=== PATIENT | female | born 1985 | race Caucasian/White ===

== ENCOUNTER 2016-11-12 14:56 | Emergency (ER) | payer SELFPAY ==
[~2016-11-12] VITALS: Ht 160 cm; Wt 121.6 kg
[2016-11-12] MEDS ORDERED: CELECOXIB 100 MG (CeleBREX) CAP PO STA (15:51)
[2016-11-12 16:06] LABS: BILIRUBIN,URINE NEGATIVE (NEGATIVE); KETONES,URINE NEGATIVE (NEGATIVE); LEUKOCYTE ESTERASE ,URINE 1+ (NEGATIVE); NITRITE,URINE NEGATIVE (NEGATIVE); PH,URINE 7 (5-9); PROTEIN,URINE 1+ (NEGATIVE); UROBILINOGEN,URINE 1 MG/DL (NORMAL)
[2016-11-12 16:14] LABS: WBC,URINE 0-2 /HPF
[2016-11-12 16:24] LABS: BASOPHILS % (AUTO) 0 % (0-10); EOSINOPHILS # (AUTO) 0.3 10^3/uL (0.0-0.3); EOSINOPHILS % (AUTO) 3 % (0-10); LYMPHOCYTES # (AUTO) 2.5 X 10^3 (1.0-4.0); LYMPHOCYTES % (AUTO) 24 % (12-44); MEAN CORPUSCULAR HEMOGLOBIN 30 PG (25-34); MEAN CORPUSCULAR HGB CONC 33 G/DL (32-36); MEAN CORPUSCULAR VOLUME 91 FL (80-99); MEAN PLATELET VOLUME 11.1 FL (7.4-10.4); MONOCYTES % (AUTO) 10 % (0-12); NEUTROPHILS # (AUTO) 6.5 X 10^3 (1.8-7.8); NEUTROPHILS % (AUTO) 63 % (42-75); PLATELET COUNT 246 10^3/uL (130-400); RED BLOOD COUNT 4.63 10^6/uL (4.35-5.85); RED CELL DISTRIBUTION WIDTH 14.7 % (10.0-14.5); WHITE BLOOD COUNT 10.3 10^3/uL (4.3-11.0)
--- NOTE | 2016-11-12 16:56 | ED GU-Female ---
General Chief Complaint: -Female Stated Complaint: VAG BLEEDING Nursing Triage Note: AMBULATED TO ROOM 10 WITH COMPLAINTS OF A HEAVY PERIOD STARTING LAST NIGHT. DENIES PAIN ET STATES PERIOD IS 1 WEEK EARLY. DENIES PREGANCY ET IS HERE WITH HER . Nursing Sepsis Screen: No Definite Risk History of Present Illness Time seen by provider: 15:35 Initial Comments Patient reports increased menstrual flow today. She reports having to change a super absorbency tampon on an hourly basis. She also reports that her cycle is approximately one week early. 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 She had treatment by an [facility] in [place] in [place]. She's had no further follow-up. She did have 2 vaginal deliveries. Patient reports she had one other experience with a heavy menstrual cycle a few years ago and she became very dizzy and short of breath easily. Denies any history of anemia. Timing/Duration: this morning Severity/Quality: moderate Location: suprapubic Radiation: none Activities at Onset: none Prior Genitourinary Problems: none Sexual [place] History: single partner (same sex partner) Associated Symptoms: No fever/chills, No loss of bladder control, No lower back pain, No nausea/vomiting, syncope Allergies and Home Medications Allergies Coded Allergies: amphetamine (Verified Adverse Reaction, Severe, SYNCOPE, 11/12/16) dextroamphetamine (Verified Adverse Reaction, Severe, SYNCOPE, 11/12/16) divalproex sodium (Verified Adverse Reaction, Unknown, DROWSINESS, 11/12/16) ketorolac (Verified Adverse Reaction, Unknown, N/V, 11/12/16) sumatriptan (Verified Adverse Reaction, Unknown, HEADACHE, 11/12/16) tramadol (Verified Adverse Reaction, Unknown, N/V, 11/12/16) Home Medications No Active Prescriptions or Reported Meds Constitutional: no symptoms reported, see HPI EENTM: no symptoms reported, see HPI Respiratory: no symptoms reported, see HPI Cardiovascular: no symptoms reported, see HPI Gastrointestinal: see HPI, abdominal pain (suprapubic) Genitourinary: no symptoms reported, see HPI : No Musculoskeletal: no symptoms reported, see HPI Skin: no symptoms reported, see HPI Psychiatric/Neurological: No Symptoms Reported, See HPI Endocrine: No Symptoms Reported, See HPI Hematologic/Lymphatic: No Symptoms Reported, See HPI All Other Systemes Reviewed Negative Unless Noted: Yes Past Tcvcsns-Hmwgfe-Tjtgey Hx Patient Social History Alcohol Use: Denies Use Recreational Drug Use: Yes Drug of Choice: POT Smoking Status: Current Everyday Smoker Recent Foreign Travel: No Contact w/Someone Who Travel: No Recent Infectious Disease Expo: No Recent Hopitalizations: No Surgeries Surgeries: Orthopedic Reviewed Nursing Assessment Reviewed/Agree w Nursing PMH: Yes Physical Exam Vital Signs Vital Sign - Last 12Hours 11/12/16 15:10 Temp 98.4 Pulse 70 Resp 16 B/P (MAP) 134/95 Pulse Ox 99 Capillary Refill : Less Than 3 Seconds General Appearance: WD/WN, no apparent distress Neck: non-tender, full range of motion, normal inspection Cardiovascular: normal peripheral pulses, regular rate, rhythm, no murmur Respiratory: chest non-tender, lungs clear Gastrointestinal: normal bowel sounds, soft, No distended, No rebound, tenderness (minimal in the suprapubic region), No hepatomegaly Extremities: normal range of motion, non-tender, normal inspection, no pedal edema, no calf tenderness, normal capillary refill Neurologic/Psychiatric: no motor/sensory deficits, alert, normal mood/affect, oriented x 3 Skin: normal color, warm/dry Progress/Results/Core Measures Results/Orders Lab Results Laboratory Tests Test 11/12/16 15:50 11/12/16 16:13 Range/Units Urine Color YELLOW Urine Clarity CLEAR Urine pH 7 5-9 Urine Specific Dawson 1.015 L 1.016-1.022 Urine Protein 1+ H NEGATIVE Urine Glucose (UA) NEGATIVE NEGATIVE Urine Ketones NEGATIVE NEGATIVE Urine Nitrite NEGATIVE NEGATIVE Urine Bilirubin NEGATIVE NEGATIVE Urine Urobilinogen 1 NORMAL MG/DL Urine Leukocyte Esterase 1+ H NEGATIVE Urine RBC (Auto) 5+ H NEGATIVE Urine RBC TNTC H /HPF Urine WBC 0-2 /HPF Urine Squamous Epithelial Cells 2-5 /HPF Urine Crystals NONE /LPF Urine Bacteria FEW H /HPF Urine Casts NONE /LPF Urine Mucus NEGATIVE /LPF Urine Culture Indicated NO White Blood Count 10.3 4.3-11.0 10^3/uL Red Blood Count 4.63 4.35-5.85 10^6/uL Hemoglobin 13.9 11.5-16.0 G/DL Hematocrit 42 35-52 % Mean Corpuscular Volume 91 80-99 FL Mean Corpuscular Hemoglobin 30 25-34 PG Mean Corpuscular Hemoglobin Concent 33 32-36 G/DL Red Cell Distribution Width 14.7 H 10.0-14.5 % Platelet Count 246 130-400 10^3/uL Mean Platelet Volume 11.1 H 7.4-10.4 FL Neutrophils (%) (Auto) 63 42-75 % Lymphocytes (%) (Auto) 24 12-44 % Monocytes (%) (Auto) 10 0-12 % Eosinophils (%) (Auto) 3 0-10 % Basophils (%) (Auto) 0 0-10 % Neutrophils # (Auto) 6.5 1.8-7.8 X 10^3 Lymphocytes # (Auto) 2.5 1.0-4.0 X 10^3 Monocytes # (Auto) 1.0 0.0-1.0 X 10^3 Eosinophils # (Auto) 0.3 0.0-0.3 10^3/uL Basophils # (Auto) 0.0 0.0-0.1 10^3/uL My Orders Orders - CRISTA DRUMMOND Cbc With Automated Diff (11/12/16 15:51) Ua Culture If Indicated (11/12/16 15:51) Celecoxib Capsule (Celebrex Capsule) (11/12/16 15:51) Vital Signs/I&O Vital Sign - Last 12Hours 11/12/16 11/12/16 15:10 17:05 Temp 98.4 Pulse 70 77 Resp 16 16 B/P (MAP) 134/95 Pulse Ox 99 98 Blood Pressure Mean: 108 Progress Note : Time: 15:35 Progress Note Initial evaluation completed, will obtain labs. Patient declined wanting an hCG as she isn't in same-sex relationship. Celebrex 200 mg by mouth for cramps. 1615 WBC 10.3, hemoglobin 13.9, hematocrit 42. UA essentially normal, other than red blood cells, as the patient is on her menstrual cycle. Patient reports her symptoms are improving since taking the Celebrex. Discussed plans for discharge to home she agreed to follow up with [facility] for further evaluation if she continues to have heavy cycles. She also understands the importance of having a follow-up Pap smear and pelvic exam. Departure Impression Impression: Primary Impression: Menstrual cramps Additional Impression: Menorrhagia Qualified Codes: N92.1 - Excessive and frequent menstruation with irregular cycle Disposition: HOME, SELF-CARE Condition: Stable Departure-Patient Inst. Decision time for Depature: 16:30 Referrals: NO,LOCAL PHYSICIAN (PCP/Family) Primary Care Physician Patient Instructions: IRREGULAR VAGINAL BLEEDING, Menstrual Cramps (DC) Add. Discharge Instructions: Monitor status of changing tampons. Increase fluid intake and take multivitamin with iron. Follow-up with [facility], need Pap and pelvic exam. Ibuprofen 800 mg every 8 hours for cramps. Return to emergency department for continued increased bleeding, dizziness, change in mental status, or other concerns. All discharge instructions reviewed with patient and/or family. Voiced understanding. Scripts No Active Prescriptions or Reported Meds Work/School Note: Work Release Form Date Seen in the Emergency Department: November 12, 2016 Return to Work: November 13, 2016 Restrictions: No Restrictions CRISTA DRUMMOND November 12, 2016 16:56
[2016-11-12 17:05] VITALS: BP 118/85
== END 2016-11-12 17:05 | disposition home or self-care (01) ==
LOC: ER 15:05
DX: N92.0 Excessive and frequent menstruation with regular cycle (principal); N94.6 Dysmenorrhea, unspecified; F17.210 Nicotine dependence, cigarettes, uncomplicated
CPT/HCPCS: 36415; 81000; 85025; 99283